=== PATIENT | male | born 1995 | race Caucasian/White ===

== ENCOUNTER 2018-03-20 17:52 | Inpatient (IN) | payer BC, OTHER ==
[~2018-03-20] VITALS: Ht 175.3 cm; Wt 83.1 kg
[2018-03-20] MEDS ORDERED: SODIUM CHLORIDE 0.9% 1,000 ML IV ONE (18:16)
[2018-03-20] MEDS ORDERED: SODIUM CHLORIDE 0.9% 1,000ML IVBOLUS ONE (18:30)
[2018-03-20 18:38] LABS: BASOPHILS # (AUTO) 0.05 x10^3/uL (0-0.1); BASOPHILS % (AUTO) 1 % (0-1); EOSINOPHILS # (AUTO) 0.04 x10^3/uL (0-0.4); EOSINOPHILS % (AUTO) 1 % (1-7); LYMPHOCYTES % (AUTO) 20 % (22-44); MD NO; MEAN CORPUSCULAR HEMOGLOBIN 30.9 pg (27.5-34.5); MEAN CORPUSCULAR VOLUME 88.3 fL (81-97); MEAN PLATELET VOLUME 7.7 fL (7.4-10.4); MONOCYTES # (AUTO) 0.41 x10^3/uL (0.2-0.8); MONOCYTES % (AUTO) 5 % (2-9); NEUTROPHILS % (AUTO) 74 % (42-75); PLATELET COUNT 318 x10^3/uL (130-400); RED CELL DISTRIBUTION WIDTH 12.5 % (9.4-14.8)
[2018-03-20 18:47] LABS: ALBUMIN 3.9 g/dL (3.4-5.0); ANION GAP 8 mmol/L (5-15); CALCIUM 8.5 mg/dL (8.5-10.1); CHLORIDE 109 mmol/L (98-107); CREATININE 0.98 mg/dL (0.7-1.3)
[2018-03-20 18:48] LABS: ACETAMINOPHEN < 2 mcg/mL (10-30); SALICYLATE LEVEL < 1.7 mg/dL (2.8-20.0)
[2018-03-20 19:49] LABS: AMPHETAMINE SCREEN, URINE Negative (Negative); BARBITURATE SCREEN, URINE Negative (Negative); BENZODIAZEPINE SCREEN, URINE Negative (Negative); CANNABINOID SCREEN, URINE Positive (Negative); COCAINE SCREEN, URINE Negative (Negative); METHADONE SCREEN, URINE Negative (Negative); OPIATE SCREEN, URINE Negative (Negative)
[2018-03-20] MEDS ORDERED: LORazepam 2 MG/ML, 1ML IVPush ONE (21:30)
[2018-03-20] MEDS ORDERED: ZIPRASIDONE 20 MG INJ IM ONE ×2 (21:33→22:00)
[2018-03-21] MEDS ORDERED: SODIUM CHLORIDE 0.9% 1,000 ML IV SCH (01:48)
[2018-03-21] MEDS ORDERED: ACETAMINOPHEN 325 MG TABLET PO PRN (02:00)
[2018-03-21] MEDS ORDERED: POLYETHYLENE GLYCOL 17 GM PACKET PO PRN (02:00)
[2018-03-21] MEDS ORDERED: ONDANSETRON ODT 4 MG PO PRN (02:00)
[2018-03-21] MEDS ORDERED: morphine SULFATE 10 MG/ML, 1ML IVPush PRN (02:00)
[2018-03-21] MEDS ORDERED: OXYcodone IR 5MG TABLET PO PRN (02:00)
[2018-03-21] MEDS ORDERED: DOCUSATE 100 MG CAPSULE PO PRN (02:00)
[2018-03-21] MEDS ORDERED: POTASSIUM CHLORIDE 40 MEQ in SODIUM CHLORIDE 0.9% 500 ML IV ONE (02:00)
[2018-03-21] MEDS ORDERED: hydrALAzine 20 MG/ML, 1ML IVPush PRN (02:00)
[2018-03-21] MEDS ORDERED: ONDANSETRON 2MG/ML, 2ML IVPush PRN (02:00)
[2018-03-21] MEDS ORDERED: BISACODYL 10 MG SUPP PR PRN (02:00)
[2018-03-21] MEDS ORDERED: PROMETHAZINE 25 MG/ML, 1ML IM PRN (02:00)
[2018-03-21 02:27] LABS: FREE T4 (FREE THYROXINE) 1.19 ng/dL (0.76-1.46); THYROID STIMULATING HORMONE 0.813 mIU/L (0.358-3.740)
[2018-03-21 02:36] LABS: HEMOGLOBIN A1C 5.2 % (4.2-6.3)
[2018-03-21] MEDS: LORazepam 2 MG/ML, 1ML IVPush SCH ×4 (03:30→22:31)
[2018-03-21 03:40] VITALS: BP 132/86
[2018-03-21 05:08] LABS: BASOPHILS # (AUTO) 0.04 x10^3/uL (0-0.1); BASOPHILS % (AUTO) 1 % (0-1); EOSINOPHILS # (AUTO) 0.12 x10^3/uL (0-0.4); EOSINOPHILS % (AUTO) 2 % (1-7); LYMPHOCYTES # (AUTO) 2.53 x10^3/uL (1-3.4); LYMPHOCYTES % (AUTO) 37 % (22-44); MD NO; MEAN CORPUSCULAR HEMOGLOBIN 30.9 pg (27.5-34.5); MEAN CORPUSCULAR HGB CONC 34.8 g/dL (33.2-36.2); MEAN PLATELET VOLUME 7.7 fL (7.4-10.4); MONOCYTES # (AUTO) 0.43 x10^3/uL (0.2-0.8); MONOCYTES % (AUTO) 6 % (2-9); NEUTROPHILS % (AUTO) 55 % (42-75); PLATELET COUNT 273 x10^3/uL (130-400); RED BLOOD COUNT 4.31 x10^6/uL (4.38-5.82); RED CELL DISTRIBUTION WIDTH 12.7 % (9.4-14.8)
[2018-03-21 05:27] LABS: CHLORIDE 112 mmol/L (98-107)
[2018-03-21 05:33] LABS: ALANINE AMINOTRANSFERASE 24 U/L (12-78); ALBUMIN 3.4 g/dL (3.4-5.0); ALKALINE PHOSPHATASE 62 U/L (45-117); ANION GAP 6 mmol/L (5-15); BILIRUBIN,TOTAL 0.6 mg/dL (0.2-1.0); CALCIUM 8.3 mg/dL (8.5-10.1); CHOL/HDL RATIO 3.4; CHOLESTEROL, TOTAL 124 mg/dL (140-239); CREATININE 0.85 mg/dL (0.7-1.3); HDL CHOL % 29 % (26-37); HDL CHOLESTEROL (DIRECT) 36 mg/dL (40-60); LDL CHOLESTEROL,CALCULATED 77 mg/dL (54-169); LDL/HDL RATIO 2.1 (0.5-3.0); TOTAL PROTEIN 6.5 g/dL (6.4-8.2); TRIGLYCERIDES 57 mg/dL (50-200); VLDL CHOLESTEROL 11 mg/dL (0-25)
[2018-03-21] MEDS: SODIUM CHLORIDE 0.9% 1,000 ML IV SCH ×2 (07:22→17:15)
[2018-03-21 08:18] VITALS: BP 108/69
[2018-03-21 11:48] LABS: MICROSCOPIC NOT IND
[2018-03-21 11:53] LABS: CULTURE INDICATED? NO
[2018-03-21 13:01] VITALS: BP 143/71
[2018-03-21 19:51] VITALS: BP 139/68
[2018-03-22 01:29] VITALS: BP 127/62
[2018-03-22] MEDS: SODIUM CHLORIDE 0.9% 1,000 ML IV SCH ×3 (03:16→22:07)
[2018-03-22 04:16] LABS: BASOPHILS # (AUTO) 0.03 x10^3/uL (0-0.1); BASOPHILS % (AUTO) 0 % (0-1); EOSINOPHILS # (AUTO) 0.14 x10^3/uL (0-0.4); EOSINOPHILS % (AUTO) 2 % (1-7); LYMPHOCYTES # (AUTO) 2.79 x10^3/uL (1-3.4); LYMPHOCYTES % (AUTO) 36 % (22-44); MD NO; MEAN CORPUSCULAR HEMOGLOBIN 29.6 pg (27.5-34.5); MEAN CORPUSCULAR HGB CONC 33.3 g/dL (33.2-36.2); MEAN CORPUSCULAR VOLUME 88.9 fL (81-97); MEAN PLATELET VOLUME 7.7 fL (7.4-10.4); MONOCYTES # (AUTO) 0.34 x10^3/uL (0.2-0.8); MONOCYTES % (AUTO) 4 % (2-9); NEUTROPHILS # (AUTO) 4.47 x10^3/uL (1.8-6.8); NEUTROPHILS % (AUTO) 58 % (42-75); PLATELET COUNT 281 x10^3/uL (130-400); RED BLOOD COUNT 4.14 x10^6/uL (4.38-5.82); RED CELL DISTRIBUTION WIDTH 12.3 % (9.4-14.8)
[2018-03-22 04:28] LABS: ALBUMIN 3.2 g/dL (3.4-5.0); ANION GAP 6 mmol/L (5-15); CALCIUM 8.2 mg/dL (8.5-10.1); CHLORIDE 112 mmol/L (98-107)
[2018-03-22 04:32] LABS: ALANINE AMINOTRANSFERASE 24 U/L (12-78); ALKALINE PHOSPHATASE 60 U/L (45-117); BILIRUBIN,TOTAL 0.6 mg/dL (0.2-1.0); CREATININE 0.77 mg/dL (0.7-1.3); TOTAL PROTEIN 6.1 g/dL (6.4-8.2)
[2018-03-22 08:37] VITALS: BP 124/78
[2018-03-22] MEDS: LORazepam 2 MG/ML, 1ML IVPush SCH (09:02)
[2018-03-22] MEDS ORDERED: LORazepam 2 MG/ML, 1ML IVPush PRN (11:00)
[2018-03-22] MEDS: ENOXAPARIN 40 MG/0.4 ML SQ SCH (13:18)
[2018-03-22 14:25] VITALS: BP 146/80
[2018-03-22 19:42] VITALS: BP 137/67
[2018-03-23 01:42] VITALS: BP 129/68
[2018-03-23] MEDS: SODIUM CHLORIDE 0.9% 1,000 ML IV SCH (06:41)
[2018-03-23 11:58] VITALS: BP 126/81
[2018-03-23] MEDS: ENOXAPARIN 40 MG/0.4 ML SQ SCH (13:57)
[2018-03-23 15:22] VITALS: BP 122/85
[2018-03-23 19:44] VITALS: BP 120/75
[2018-03-24 07:45] VITALS: BP 128/80
[2018-03-24] MEDS: ENOXAPARIN 40 MG/0.4 ML SQ SCH (13:59)
[2018-03-24 19:45] VITALS: BP 124/76
[2018-03-25 07:50] VITALS: BP 161/95
[2018-03-25] MEDS: ENOXAPARIN 40 MG/0.4 ML SQ SCH (14:07)
[2018-03-25 19:17] VITALS: BP 126/86
[2018-03-26 07:43] VITALS: BP 114/76
[2018-03-26 19:23] VITALS: BP 114/72
[2018-03-26] MEDS: FAMOTIDINE 20 MG TABLET PO SCH (19:55)
[2018-03-27 07:45] VITALS: BP 129/81
[2018-03-27 19:17] VITALS: BP 124/74
[2018-03-27] MEDS: FAMOTIDINE 20 MG TABLET PO SCH (21:00)
[2018-03-28 07:50] VITALS: BP 119/85
[2018-03-28 19:36] VITALS: BP 114/74
[2018-03-28] MEDS: FAMOTIDINE 20 MG TABLET PO SCH (22:05)
[2018-03-29 07:39] VITALS: BP 124/70
[2018-03-29 19:48] VITALS: BP 123/78
[2018-03-29] MEDS: FAMOTIDINE 20 MG TABLET PO SCH (22:46)
[2018-03-30 08:15] VITALS: BP 114/73
== END 2018-03-30 14:49 | DRG 885 ==
LOC: ED 18:35 → EDIP 03-21 01:48 → 3NW 03-21 03:19 → 3E 03-23 16:42
PROVIDERS: ADMIT Internal Medicine; ATTEND Internal Medicine
DX: F20.2 Catatonic schizophrenia (principal); F28 Other psychotic disorder not due to a substance or known physiological condition; E87.6 Hypokalemia; F17.200 Nicotine dependence, unspecified, uncomplicated; I10 Essential (primary) hypertension; F12.10 Cannabis abuse, uncomplicated; F32.9 Major depressive disorder, single episode, unspecified; R00.0 Tachycardia, unspecified; Z74.01 Bed confinement status; Z91.83 Wandering in diseases classified elsewhere
CPT/HCPCS: 36415; 80048; 80053; 80061; 80307; 80329; 81003; 82040; 83036; 83735; 84100; 84439; 84443; 85025; 93005; 95819; 96360; 96372; J1650; J3480; J3486; G0480; J2060; J7030; J7040

== ENCOUNTER 2018-11-01 13:45 | Emergency (ER) | payer BC, OTHER ==
[~2018-11-01] VITALS: Ht 175.3 cm; Wt 93.0 kg
[2018-11-01 14:02] VITALS: BP 166/96
--- NOTE | 2018-11-01 15:04 | NUR ---
PT'S CHART IS UP FOR RECHECK
== END 2018-11-01 15:36 | disposition home or self-care (01) ==
LOC: ED 15:20
DX: G89.29 Other chronic pain (principal); M25.552 Pain in left hip; M79.661 Pain in right lower leg; I10 Essential (primary) hypertension
CPT/HCPCS: 99283

== ENCOUNTER 2018-11-02 00:39 | Emergency (ER) | payer BC, OTHER ==
[~2018-11-02] VITALS: Ht 175.3 cm; Wt 90.2 kg
[2018-11-02 00:47] VITALS: BP 153/90
[2018-11-02] MEDS ORDERED: IBUPROFEN 200 MG TABLET PO ONE (02:00)
--- NOTE | 2018-11-02 02:01 | NUR ---
PT CALLED FROM LOBBY TO GO TO ROOM. PT STATES "I DON'T WANT TO GO TO A ROOM". RN ASKED PT IF HE IS REFUSING CARE, TO WHICH PT REPLIED, "YES, THATS FINE". SECURITY CALLED TO MAKE AWARE THAT PT IS REFUSING CARE AND MAY REQUIRE GENTLE ASSISTANCE TO EXIT. CHARGE MADE AWARE.
== END 2018-11-02 02:07 | disposition home or self-care (01) ==
LOC: ED 02:01
DX: M25.561 Pain in right knee (principal)
CPT/HCPCS: 99282

== ENCOUNTER 2018-11-02 06:18 | Emergency (ER) | payer BC, OTHER | END 2018-11-02 06:24 | disposition left against medical advice (07) | LOC: ED 06:22 | DX: R52 Pain, unspecified (principal); Z53.21 Procedure and treatment not carried out due to patient leaving prior to being seen by health care provider ==

== ENCOUNTER 2018-11-03 03:13 | Emergency (ER) | payer BC, OTHER ==
--- NOTE | 2018-11-03 03:17 | NUR ---
NIL X 1 WHEN CALLED FOR TRIAGE.
--- NOTE | 2018-11-03 03:25 | NUR ---
PT. SITTING IN CHAIR IN LOBBY. PT. CALLED BACK FOR TRIAGE AND PT. STATES "I DON'T WANT TO COME BACK RIGHT AWAY, I'M OK HERE". PT. HAS BELONGINGS SCATTERED ALL OVER LOBBY; SECURITY NOTIFIED AT THIS TIME.
--- NOTE | 2018-11-03 03:29 | NUR ---
SECURITY INFORMED PT. HE NEEDS TO BE TRIAGED OR LEAVE THE ED. PT. GATHERED BELONGINGS AND WALKED OUT OF ED WITH STEADY GAIT.
== END 2018-11-03 03:32 | disposition left against medical advice (07) ==
LOC: ED 03:26
DX: M79.604 Pain in right leg (principal); M79.605 Pain in left leg; Z53.21 Procedure and treatment not carried out due to patient leaving prior to being seen by health care provider

== ENCOUNTER 2018-11-06 04:30 | Emergency (ER) | payer BC, OTHER ==
[~2018-11-06] VITALS: Ht 175.3 cm; Wt 89.3 kg
[2018-11-06] MEDS ORDERED: IBUPROFEN 200 MG TABLET ONE (04:48)
[2018-11-06] MEDS ORDERED: IBUPROFEN 200 MG TABLET PO ONE (05:00)
--- NOTE | 2018-11-06 05:05 | NUR ---
pt refused ibuprofen. pt to xray
--- NOTE | 2018-11-06 05:52 | NUR ---
PT ANUPAM JOSHUA. CALL LIGHT IN REACH. PT WAITING FOR XRAY RESULTS.
[2018-11-06 06:20] VITALS: BP 139/82
--- NOTE | 2018-11-06 07:01 | NUR ---
Patient given discharge instructions and they have confirmed that they understand the instructions. Patient getting dressed.
--- NOTE | 2018-11-06 07:47 | NUR ---
PT REFUSING TO DISCHARGE. PT AOX4, HAS UNLABORED RESPIRATIONS EQUAL BILATERALLY, AND HAS STEADY GAIT AND BALANCE. SECURITY ESCORTED PT TO DISCHARGE. Patient given discharge instructions and they have confirmed that they understand the instructions. Patient ambulatory with steady gait.
--- NOTE | 2018-11-06 07:47 | NUR ---
PT LEFT WITH ALL PERSONAL BELONGINGS, DISCHARGE PAPERWORK, AND PRESCRIPTIONS.
== END 2018-11-06 07:49 | disposition home or self-care (01) ==
LOC: ED 04:40
DX: G89.29 Other chronic pain (principal); M25.552 Pain in left hip; M25.512 Pain in left shoulder; M19.90 Unspecified osteoarthritis, unspecified site; I10 Essential (primary) hypertension; Z72.9 Problem related to lifestyle, unspecified; Z59.0 Homelessness
CPT/HCPCS: 99283

== ENCOUNTER 2018-11-06 20:51 | Emergency (ER) | payer BC, OTHER ==
[~2018-11-06] VITALS: Ht 175.3 cm; Wt 85.0 kg
--- NOTE | 2018-11-06 20:53 | NUR ---
PER EMS PT WAS IN A ROOM AT [facility] AND WAS REFUSED PAIN MEDS BY [facility] AND CALLED 911 FROM [facility]. PT REFUSED MOTRIN AND TYLENOL WITH EMS.
[2018-11-06 20:59] VITALS: BP 145/70
--- NOTE | 2018-11-06 23:01 | NUR ---
PT REFUSED DC INSTRUCTIONS.
--- NOTE | 2018-11-06 23:01 | NUR ---
Patient/Caregiver given discharge instructions and they have confirmed that they understand the instructions. Patient ambulatory with steady gait.
== END 2018-11-06 23:02 | disposition home or self-care (01) ==
LOC: ED 21:19
DX: M25.552 Pain in left hip (principal); I10 Essential (primary) hypertension
CPT/HCPCS: 99284

== ENCOUNTER 2018-11-07 04:45 | Emergency (ER) | payer BC, OTHER ==
[~2018-11-07] VITALS: Ht 175.3 cm; Wt 86.2 kg
[2018-11-07 04:48] VITALS: BP 150/92
--- NOTE | 2018-11-07 05:10 | NUR ---
NADIA RN: PT GIVEN SOCKS AND D/C'D WITH SECURITY
== END 2018-11-07 05:19 | disposition home or self-care (01) ==
LOC: ED 05:16
DX: G89.29 Other chronic pain (principal); M79.671 Pain in right foot; M79.672 Pain in left foot; Z72.9 Problem related to lifestyle, unspecified; I10 Essential (primary) hypertension
CPT/HCPCS: 99282

== ENCOUNTER 2018-11-07 23:58 | Emergency (ER) | payer BC, OTHER ==
[~2018-11-07] VITALS: Ht 172.7 cm; Wt 84.6 kg
[2018-11-08 00:02] VITALS: BP 150/83
[2018-11-08] MEDS ORDERED: KETOROLAC 30 MG/1 ML IM ONE (00:30)
[2018-11-08] MEDS ORDERED: KETOROLAC 30 MG/1 ML ONE (00:41)
--- NOTE | 2018-11-08 00:46 | NUR ---
TASK RN: PT LAYING ON JOSIANE CHANDRA NOTED. PT REFUSING PAIN MEDICATIONS, "I JUST WANTED BANDAGES FOR MY FEET".
== END 2018-11-08 01:18 | disposition home or self-care (01) ==
LOC: ED 11-08 01:03
DX: G89.29 Other chronic pain (principal); M79.671 Pain in right foot; M79.672 Pain in left foot; I10 Essential (primary) hypertension; F17.200 Nicotine dependence, unspecified, uncomplicated
CPT/HCPCS: 99283

== ENCOUNTER 2018-11-14 06:25 | Emergency (ER) | payer BC, OTHER ==
--- NOTE | 2018-11-14 06:36 | NUR ---
patient not in the lobby. no where to be found.
== END 2018-11-14 06:39 | disposition left against medical advice (07) ==
LOC: ED 06:31
DX: M25.519 Pain in unspecified shoulder (principal); R07.81 Pleurodynia; Z53.21 Procedure and treatment not carried out due to patient leaving prior to being seen by health care provider

== ENCOUNTER 2018-11-24 05:48 | Emergency (ER) | payer BC, OTHER ==
[~2018-11-24] VITALS: Ht 175.3 cm; Wt 82.9 kg
[2018-11-24 05:54] VITALS: BP 142/86
--- NOTE | 2018-11-24 06:03 | NUR ---
RT SIDE PAIN, HX CRACKED RIB
== END 2018-11-24 06:18 | disposition home or self-care (01) ==
LOC: ED 06:00
DX: S20.211A Contusion of right front wall of thorax, initial encounter (principal); X58.XXXA Exposure to other specified factors, initial encounter; Y93.89 Activity, other specified; Y92.89 Other specified places as the place of occurrence of the external cause; Y99.8 Other external cause status
CPT/HCPCS: 99281